=== PATIENT | male | born 1980 | race Caucasian/White ===

== ENCOUNTER 2024-04-05 03:11 | Emergency (ER) | payer SELFPAY ==
[2024-04-05] MEDS ORDERED: Boostrix 0.5 ML (Tdap) VIAL (>/=7 yrs of age) ONE (03:18)
[2024-04-05] MEDS ORDERED: Ketorolac Tromethamine 30 MG (1 mL) VIAL ONE (03:32)
== END 2024-04-05 04:31 | disposition home or self-care (01) ==
LOC: NAV ERS 03:11
DX: T23.201A Burn of second degree of right hand, unspecified site, initial encounter (principal); Z23 Encounter for immunization
CPT/HCPCS: 90471; 90715; 96374; J1885